=== PATIENT | male | born 1935 | race Caucasian/White ===

== ENCOUNTER → 2016-09-04 | Outpatient (CLI) | payer MEDICARE ==
[~2016-09-04] MED LIST: ASPIR 8181 MG PO; COLACE 100MG C100 MG PO; COREG 3.125M3.125 MG PO; EMLA CREAM5 GM TP; LACTULOSE10 GM/15 M PO; LEVEMIR100 UNIT/1 SQ; LORTAB 5-325 M1 EACH PO; NORFLEX 100 MG100 MG PO; PRAVACHOL80 MG PO; REGLAN5 MG PO; RENVELA800 MG PO
== END ==
LOC: LAB 12:18
DX: Z51.11 Encounter for antineoplastic chemotherapy (principal); C90.00 Multiple myeloma not having achieved remission; D89.1 Cryoglobulinemia; D50.9 Iron deficiency anemia, unspecified
CPT/HCPCS: 36415; 73564; 84550

== ENCOUNTER → 2016-10-01 | Outpatient (CLI) | payer MEDICARE | LOC: OPSV 09:52 | DX: R18.8 Other ascites (principal); N18.6 End stage renal disease; K74.69 Other cirrhosis of liver; I50.9 Heart failure, unspecified; Z99.2 Dependence on renal dialysis ==